=== PATIENT | male | born 1930 | race Hispanic/Latino ===

== ENCOUNTER 2018-07-19 07:46 | Observation (INO) | payer MEDICARE ==
[2018-07-18 15:28] LABS: BASOPHILS % 0.2 % (0.0-1.0); EOSINOPHILS % 0.1 % (0.0-6.0); HEMATOCRIT 30.3 % (38.2-49.6); HEMOGLOBIN 10.1 g/dL (14.0-18.0); LYMPHOCYTES % 13.6 % (18.0-39.1); MEAN CORPUSCULAR HEMOGLOBIN 31.9 pg (28-32); MEAN CORPUSCULAR HGB CONC 33.3 g/dL (31-35); MEAN CORPUSCULAR VOLUME 95.6 fL (81-99); MONOCYTES # (AUTO) 1.4 (0.2-0.8); MONOCYTES % 9.3 % (4.4-11.3); NEUTROPHILS # (AUTO) 11.1 (2.1-6.9); NEUTROPHILS % 75.8 % (38.7-80.0); PLATELET COUNT 101 x10e3/uL (140-360); RED BLOOD COUNT 3.17 x10e6/uL (4.3-5.7); RED CELL DISTRIBUTION WIDTH 15.9 % (11.7-14.4)
[2018-07-18 15:41] LABS: ANION GAP 13.6 mmol/L (8-16); CALCIUM 10.2 mg/dL (8.4-10.2); CREATININE, SERUM 2.07 mg/dL (0.72-1.25); POTASSIUM 3.6 mmol/L (3.5-5.1)
--- NOTE | 2018-07-18 16:45 | Diagnostic Imaging Report ---
EXAM: CHEST 2 VIEWS DATE: 07/18/2018 3:05 PM INDICATION: Preop for prostate surgery COMPARISON: None FINDINGS: Lines and tubes: None Heart size normal. No focal pulmonary opacity, pleural effusion or pneumothorax. Upper abdomen unremarkable. No acute bony abnormality. There is greater than 50% anterior compression of the L1 vertebral body. IMPRESSION: 1. No evidence for acute disease in the chest. 2. Age indeterminate anterior compression of the L1 vertebral body which may be posttraumatic or pathologic. Signed by: Dr. Rubens Lagos M.D. on 07/18/2018 4:42 PM
[~2018-07-19] VITALS: Ht 165.1 cm; Wt 59.9 kg
[~2018-07-19 07:46] MED LIST: MELATONIN3 MG PO; MULTIVITAMINS1 EAC7 PO; TRIMETHOPRIM100 MG PO
--- OUTSIDE RECORDS SUMMARY | 2018-07-19 07:50 | XMS REPORT ---
[facility] Address Unknown Phone Unavailable Care Team Providers Care Choker Setter Name Role Phone RAYMONDJEANETTE PP Unavailable Carrie MORENO Unavailable Unavailable Problems This patient has no known problems. Allergies, Adverse Reactions, Alerts This patient has no known allergies or adverse reactions. Medications This patient has no known medications. Encounters Start Date/Time End Date/Time Encounter Type Admission Type Attending Clinicians Care Facility Care Department Encounter ID 2016-12-27 12:14:00 2016-12-27 12:14:00 Outpatient [facility] [id number] Results Test Description Test Time Test Comments Text Results Atomic Results Result Comments CHEST 2 VIEWS 2018-07-18 16:39:00 [place] [id number] Patient Name: RUDY CEDILLO MR #: [id number] : 1930 Age/Sex: 87/M Req #: [id number] Adm Physician: Ordered by: LAI MORENO MD Report #: [id number] Location: OR Room/Bed: Procedure: [id number] DX/CHEST 2 VIEWS Exam Date: 07/18/18 Exam Time: 1525 REPORT STATUS: Signed EXAM: CHEST 2 VIEWS DATE: 07/18/2018 3:05 PM INDIC ATION: Preop for prostate surgery COMPARISON: None FINDINGS: Lines and tubes: None Heart size normal. No focal pulmonary opacity, pleural effusion or pneumothorax. Upper abdomen unremarkable. No acute bony abnormality. There is greater than 50% anterior compression of the L1 vertebral body. IMPRESSION: 1. No evidence for acute disease in the chest. 2. Age indeterminate anterior compression of the L1 vertebral body which may be posttraumatic or pathologic. Signed by: Dr. Asuncion Garcia M.D. on 07/18/2018 4:42 PM Dictated By: ASUNCION GARCIA MD 41 Transcribed By: GINA on 07/18/181641 COPY TO: LAI MORENO MD CT IAC WO CONTRAST 2016-12-27 14:40:02 CT IAC WO CONTRASTLOCATION CODE: R16 HISTORY: LEFT EAR INFECTIONCOMPARISON: None.TECHNIQUE: Axial CT of the temporal bones was performed withoutcontrast. Coronal, Poschl, and Stenvers reconstructed images werecreated. One or more of the following dose reduction techniques wereused: Automated exposure control, adjustment of the mA and/or kVaccording to patient size, and/or utilization of iterativereconstruction technique.DISCUSSION:Right temporal bone: External auditory canal: Patent.Tympanic Membrane: Barely visualized and retracted.Scutum: Intact.Ossicles: Well visualized and intact.Middle ear: The epitympanum and mesotympanum are opacified..Mastoid air cells: Opacified.Tegmen tympani/mastoideum: Dehiscent.Internal auditory canal: Normal in caliber.Inner ear: Normal cochlea and vestibules.Semicircular canals: Normal. Not dehiscent.Facial canal: Normal.Vestibular Aqueducts: Not enlarged.Left temporal bone: External auditory canal: There is marked soft tissue thickening alongthe ayala of the external auditory canal without mainor osseous erosion.Tympanic Membrane: Obscured and appears retracted.Scutum: Intact.Ossicles: Well visualized and intact.Middle ear: Partial opacification of the epitympanum and mesotympanum.Mastoid air cells: Opacified.Tegmen tympani/mastoideum: Dehiscent.Internal auditory canal: Normal in caliber.Inner ear: Normal cochlea and vestibules.Semicircular canals: Normal. Not dehiscent.Facial canal: Normal.Vestibular Aqueducts: Not enlarged.Additional findings: Carotid siphon and intradural vertebral arterycalcifications are present. Both ocular lenses are thinned. There ismild mucosal thickening in the frontonasal recesses, left greater thanright. There is minimal mucosal thickening in the right maxillary sinus.IMPRESSION:Right:1. Nonspecific opacification of the right middle ear and mastoid aircells with associated dehiscence of the right tegmen tympani/mastoideum.Cholesteatoma is a possibility.2. The right ossicles are grossly intact.Left:1. Nonspecific mild soft tissue thickening along the ayala of the leftexternal auditory canal may be due to granulation tissue. No associatedfrank osseous destruction.2. Nonspecific opacification of the left middle ear and mastoid aircells with associated dehiscence of the left tegmen tympani/mastoideum.Cholesteatoma is a possibility.3. The left ossicles are grossly intact.
[2018-07-19] MEDS ORDERED: CEFTRIAXONE SOD 1 GM/NS 50 ML 50 ML IV ONE (08:07)
[2018-07-19] MEDS ORDERED: FLOMAX0.4 MG PO (08:34)
[2018-07-19] MEDS ORDERED: B&O 60MG R/S 60 MG SUPP PR ONE (11:55)
[2018-07-19] MEDS ORDERED: FENTANYL CITRATE/PF 100MCG/2 ML INJ ONE (13:44)
[2018-07-19 14:09] VITALS: BP 130/86
[2018-07-19 14:12] VITALS: BP 130/86
[2018-07-19] MEDS ORDERED: DEXTROSE 5%/0.9% SOD CHL 1,000 ML IV ONE (14:15)
[2018-07-19 14:18] VITALS: BP 130/86
[2018-07-19] MEDS: ACETAMINOPHEN/CODEINE 300MG - 30MG TAB PO PRN ×2 (14:49→21:21)
[2018-07-19] MEDS: CIPROFLOXACIN 500 MG TAB PO SCH ×2 (15:11→21:28)
[2018-07-19 15:33] VITALS: BP 90/57
[2018-07-19] MEDS ORDERED: PNEUMOCOCCAL VACCINE POLYVALENT 23 MCG/0.5 ML VIAL IM SCH (16:00)
[2018-07-19] MEDS ORDERED: PROPOFOL IV EMULSION 10 MG/ML 20 ML VIAL ONE (17:47)
[2018-07-19] MEDS ORDERED: ONDANSETRON HCL INJ 2MG/ML 2ML 2 MG/ML VIAL ONE (17:47)
[2018-07-19] MEDS ORDERED: SEVOFLURANE INHAL SOLN 250 ML PEN BTL ONE (17:47)
[2018-07-19] MEDS ORDERED: LIDOCAINE HCL 2% LOCAL INJ 5 ML SDV VIAL INJ ONE (17:47)
--- NOTE | 2018-07-19 19:15 | NUR ---
RECEIVED PATIENT RESTING WITH EYES CLOSED, RESP EVEN AND UNLABORED. FAMILY MEMBER AT BEDSIDE. GUERRERO CATH TO GRAVITY, CBI- OUTPUT PINK WITH A SINGLE CLOT, FLOW INCREASED AT THIS TIME. NO S/S OF DISTRESS OBSERVED. BED LOCKED AND IN LOWEST POSITION, CALL LIGHT WITHIN EASY REACH. WILL CONTINUE TO MONITOR PATIENT.
[2018-07-19 20:00] VITALS: BP 104/68
[2018-07-19 20:40] VITALS: BP 104/68
[2018-07-19] MEDS ORDERED: TAMSULOSIN HCL 0.4 MG CAP PO SCH (21:00)
[2018-07-20] VITALS: BP 110/59
[2018-07-20 04:00] VITALS: BP 153/59
--- NOTE | 2018-07-20 04:03 | NUR ---
walton cath not draining. simple hand irrigation performed, one clot irrigated. walton cath now draining, output remains light pink, free of clots at this time. bed bath and linen changed performed. bed locked and in lowest position, call light within easy reach. will continue to monitor the patient.
--- NOTE | 2018-07-20 06:59 | NUR ---
report given to oncoming nurse, patient resting in bed with eyes closed. no s/s of distress observed. family members at bedside.
[2018-07-20] MEDS: CIPROFLOXACIN 500 MG TAB PO SCH (07:48)
[2018-07-20] MEDS: ACETAMINOPHEN/CODEINE 300MG - 30MG TAB PO PRN (07:49)
--- NOTE | 2018-07-20 08:10 | NUR ---
walton removed by Dr Terrell. to be discharged after patient voids. DTV.
[2018-07-20 08:48] VITALS: BP 92/50
[2018-07-20 12:35] VITALS: BP 121/55
[2018-07-20] MEDS ORDERED: TYLENOL WITH C1 EACH PO (15:55)
[2018-07-20] MEDS ORDERED: CIPRO500 MG PO (15:55)
[2018-07-20 16:45] VITALS: BP 107/74
--- NOTE | 2018-08-19 19:45 | Operative Report ---
DATE OF PROCEDURE: 07/19/2018 SURGEON: Festus Pabon MD PREOPERATIVE DIAGNOSIS: Urinary retention. POSTOPERATIVE DIAGNOSIS: Urinary retention. OPERATIVE PROCEDURE: 1. Cystoscopy. 2. Transurethral resection of the prostate. ANESTHESIA: General anesthesia. ESTIMATED BLOOD LOSS: Minimal. INDICATIONS: Mr. Dirk Baer is an 87-year-old gentleman with a history of urinary retention for several months. He now presents for definitive surgical management of this problem after multiple voiding trial failures. PROCEDURE IN DETAIL: The patient was brought in the operating room, placed in supine position. After administration of general anesthesia, he was placed in dorsal lithotomy position and prepped and draped in usual sterile fashion. Cystourethroscopy was performed using 21-Italian cystoscope. The anterior and posterior urethra were noted to be normal. 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 The bladder was entered without difficulty. Upon entry into the bladder, the ureteral orifices were normal in anatomical position and produced largely clear efflux. There was moderate edema, mucosa noted in the trigone and on the dome particularly in the region of the bladder neck, presumably from the walton. The bladder was left full and the cystoscope and sheath were removed. A 26- Italian resectoscope sheath was then placed in a retrograde fashion and the Maya's Mom resectoscope was used to perform the procedure. Beginning in the 1 o'clock position and proceeding in a clockwise fashion down to the 6 o'clock position, all the adenomatous tissue between the bladder neck and the veru was resected down to level of the surgical capsule. No gross penetration or perforation of the capsule was identified. A similar procedure was performed on the contralateral side in a counter-clockwise fashion beginning at the 11 o'clock position and again ending at the 6 o'clock position. Again, there was no gross penetration or perforation of the capsule. The Aditazz evacuator was used to remove all chips and residual tissue on the roof of the gland was resected free. Once all chips were removed and adequate hemostasis was secured, the bladder was left full and the resectoscope and sheath were removed. The patient was noted to have a fair urinary flow with coude. The 24-Italian 3 way coude catheter was then placed in a retrograde fashion and balloon inflated with 45 mL of sterile water. The urinary efflux was blood-tinged. He was started on continuous bladder irrigation and placed to gravity drainage. He was returned to supine position and anesthesia was reversed. He was transferred to a bed and taken to the Postanesthesia Care Unit in good condition. Of note, the needle and instrument count were correct at the conclusion of the case. MD TG Mcmahan/LIZZETH /[id number] MTDPalmira
== END 2018-07-20 17:26 | disposition home or self-care (01) ==
LOC: OR 07:46 → PACU V 12:46 → IMCU 13:29
PROVIDERS: ADMIT Urology; ATTEND Urology
DX: R33.9 Retention of urine, unspecified (principal); Z01.810 Encounter for preprocedural cardiovascular examination; Z01.812 Encounter for preprocedural laboratory examination; Z01.811 Encounter for preprocedural respiratory examination; Z23 Encounter for immunization; I10 Essential (primary) hypertension; F32.9 Major depressive disorder, single episode, unspecified
CPT/HCPCS: 36415; 52601; 71046; 80048; 85025; 88305; 90732; 93005; G0378 ×2; J0696; J2001; J2405; J2704; J7042; G0009; J3010